=== PATIENT | female | born 1950 | race Hispanic/Latino ===

== ENCOUNTER 2019-02-20 01:24 | Emergency (ER) | payer OTHER ==
[~2019-02-20 01:24] MED LIST: AEC81 PO; INSU100C14 SQ; INSU100I13 SQ; METF-444 PO; SIMV20TA6 PO; VIT D2 PO
[2019-02-20] MEDS ORDERED: ONDANSETRON ODT 4 MG TAB ONE (03:31)
[2019-02-20] MEDS ORDERED: ACETAMINOPHEN-CODEINE 300/30MG TAB ONE (03:32)
[2019-02-20] MEDS ORDERED: MORPHINE SULFATE 4 MG/1ML SYG ONE (03:32)
== END 2019-02-20 04:19 | disposition home or self-care (01) ==
LOC: EDH 01:24
DX: S42.202A Unspecified fracture of upper end of left humerus, initial encounter for closed fracture (principal); S80.212A Abrasion, left knee, initial encounter; E11.9 Type 2 diabetes mellitus without complications; E78.00 Pure hypercholesterolemia, unspecified; I25.10 Atherosclerotic heart disease of native coronary artery without angina pectoris; Z95.1 Presence of aortocoronary bypass graft; Z90.49 Acquired absence of other specified parts of digestive tract; W18.39XA Other fall on same level, initial encounter; Y93.01 Activity, walking, marching and hiking; Y92.89 Other specified places as the place of occurrence of the external cause; Y99.8 Other external cause status
CPT/HCPCS: 73030; 96372; 99284; J2270

== ENCOUNTER 2019-09-20 08:14 | Inpatient (IN) | payer OTHER ==
[~2019-09-20] VITALS: Ht 157.5 cm; Wt 71.8 kg
[2019-09-20] VITALS (86 sets, daily range): BP systolic 47–157; BP diastolic 26–114
[~2019-09-20 08:14] MED LIST changes: +SIMV-43 PO; -SIMV20TA6 PO
[2019-09-20] MEDS ORDERED: PROPOFOL 1000 MG/100 ML 100 ML IV ONE (08:19)
[2019-09-20] MEDS ORDERED: MIDAZOLAM HCL 5 MG/ML 2ML VIAL IV ONE (08:20)
[2019-09-20 08:55] LABS: ABG BASE EXCESS -21.8 mmol/L (-2.0-3.0); ABG HCO3 7.1 mmol/L (21.0-28.0); ABG OXYGEN SATURATION 99.5 % (95.0-99.0); ABG PCO2 25 mmHg (32-45)
[2019-09-20 09:12] LABS: BASOPHILS % (AUTO) 0.3 % (0.0-5.0); HEMATOCRIT 37.8 % (36-48); LYMPHOCYTES % (AUTO) 3.7 % (21.0-51.0); MEAN CORPUSCULAR HEMOGLOBIN 29.3 pg (27.0-33.0); MEAN CORPUSCULAR HGB CONC 31.2 g/dL (32.0-36.0); MEAN CORPUSCULAR VOLUME 93.8 fL (79-99); MONOCYTES % (AUTO) 6.4 % (3.0-13.0); NEUTROPHILS % (AUTO) 82.4 % (40.0-77.0); PLATELET COUNT (AUTO) 407 K/uL (130-400); RED BLOOD CELL COUNT(AUTO) 4.03 MIL/uL (4.00-5.50); RED CELL DISTRIBUTION WIDTH 14.1 % (11.0-15.5); WHITE BLOOD COUNT (AUTO) 29.8 K/uL (4.8-10.8)
[2019-09-20] MEDS ORDERED: SODIUM CHLORIDE 0.9% 1000ML 3,000 ML IV ONE (09:13)
[2019-09-20] MEDS ORDERED: SODIUM CHLORIDE 0.9% 100 ML IV ONE (09:14)
[2019-09-20] MEDS ORDERED: INSULIN HUMULIN R 100 UNIT/ML 3ML ONE ×2 (09:16→09:18)
[2019-09-20] MEDS ORDERED: MEROPENEM 1 GM VIAL ONE (09:17)
[2019-09-20] MEDS ORDERED: NOREPINEPHRINE BITARTRATE 1 MG/1 ML ML IV ONE (09:18)
[2019-09-20] MEDS ORDERED: SODIUM CHLORIDE 0.9% 250 ML IV ONE (09:19)
[2019-09-20 09:25] LABS: INR 0.98 (0.85-1.15); PARTIAL THROMBOPLASTIN TIME 23.6 SEC (26.3-35.5); PROTHROMBIN TIME 10.6 SEC (9.6-11.6)
[2019-09-20 09:26] LABS: ALBUMIN 2.4 g/dL (3.5-5.0); BILIRUBIN,TOTAL 0.5 mg/dL (0.2-1.0); POTASSIUM 4.7 mmol/L (3.5-5.1); TOTAL PROTEIN, SERUM 5.7 g/dL (6.0-8.3)
[2019-09-20 10:55] LABS: BASOPHILS % (MANUAL) 1 % (0-2); LYMPHOCYTES % (MANUAL) 3 % (22-44); MAN.DIFF COMMENT-IMPRESSION MANUAL DIFFERENTIAL; MONOCYTES % (MANUAL) 3 % (2-9); SEGMENTED NEUTROPHILS % 93 % (40-70)
[2019-09-20 10:56] LABS: PLATELET MORPHOLOGY COMMENT SLIGHT INCREASED
[2019-09-20] MEDS ORDERED: METOCLOPRAMIDE 10 MG/2 ML VIAL IVP PRN (11:45)
[2019-09-20] MEDS ORDERED: MAGNESIUM 2GM PREMIX 50ML 50 ML IV PRN (11:45)
[2019-09-20] MEDS ORDERED: GLUCAGON 1MG KIT 1 MG ML IM PRN (11:45)
[2019-09-20] MEDS ORDERED: DEXTROSE 50%-WATER 50 ML DISP.SYRIN IV PRN (11:45)
[2019-09-20] MEDS ORDERED: HYDRALAZINE HCL 20 MG/ML VIAL IV PRN (11:45)
[2019-09-20] MEDS ORDERED: LACTULOSE 20 GM/30 ML UDCUP PO PRN (11:45)
[2019-09-20] MEDS ORDERED: ONDANSETRON HCL 4 MG/2 ML VIAL IVP PRN (11:45)
[2019-09-20] MEDS ORDERED: INSULIN REGULAR, HUMAN 3ML 100 UNIT in SODIUM CHLORIDE 0.9% 99 ML IV PRN ×2 (12:00)
[2019-09-20] MEDS ORDERED: VANCOMYCIN PROTOCOL PER PHARMACY IV SCH (13:30)
[2019-09-20] MEDS ORDERED: PHARMACY COMMUNICATION MISC SCH ×2 (13:30→15:15)
[2019-09-20] MEDS ORDERED: OSELTAMIVIR PHOSPHATE 75 MG CAP NG SCH (13:45)
[2019-09-20] MEDS: MIDAZOLAM 50MG-0.9% NS 50ML 50 ML IV SCH (14:38)
[2019-09-20] MEDS: MEROPENEM 1 GM VIAL IVP SCH ×2 (14:39→20:34)
[2019-09-20] MEDS: SODIUM CHLORIDE 0.9% 1000ML 1,000 ML IV SCH ×4 (14:45→20:10)
[2019-09-20 15:06] LABS: ABG BASE EXCESS -14.1 mmol/L (-2.0-3.0); ABG HCO3 10.9 mmol/L (21.0-28.0); ABG OXYGEN SATURATION 98.8 % (95.0-99.0); ABG PCO2 24 mmHg (32-45)
[2019-09-20] MEDS ORDERED: LIDOCAINE HCL-MPF 1% 2ML VIAL IV PRN (16:00)
--- NOTE | 2019-09-20 16:00 | NUR ---
PICC LINE ATTEMPT TO LEFT UPPER ARM, UNABLE TO INTRODUCE CATHETER TO 2 SITE , PROCEDURE ABORTED
[2019-09-20] MEDS: NOREPINEPHRINE 4MG/NS 250ML 250 ML IV SCH ×4 (16:20→23:06)
[2019-09-20] MEDS: POTASSIUM CHLORIDE 10MEQ/100ML 100 ML IV PRN (16:45)
[2019-09-20] MEDS ORDERED: LACTATED RINGERS 1000ML 2,000 ML IV ONE (16:49)
[2019-09-20] MEDS ORDERED: LACTATED RINGERS 1000ML IV SCH (17:00)
[2019-09-20] MEDS: SYRING IV SCH (17:32)
[2019-09-20] MEDS: SODIUM CHLORIDE 0.9% IV SCH (17:32)
[2019-09-20] MEDS: SODIUM BICARB 8.4% IV SCH (17:32)
[2019-09-20] MEDS: OSELTAMIVIR SUSP 15 MG/ML (6 CAPS/29ML) NG SCH ×2 (18:11)
[2019-09-20] MEDS ORDERED: COMPOUND PO MISCELLANEOUS 1 EACH MISC MISC PRN (18:15)
[2019-09-20] MEDS: FENTANYL 1000MCG+NS 100ML IV.SOLN IV SCH ×2 (20:33→22:45)
[2019-09-20] MEDS: VANCOMYCIN 1GM+NS 250ML 250 ML IV SCH (20:34)
[2019-09-20 21:19] LABS: MAGNESIUM 1.7 mg/dL (1.80-2.40); POTASSIUM 3.1 mmol/L (3.5-5.1)
[2019-09-20] MEDS ORDERED: MAGNESIUM 2GM PREMIX 50ML 50 ML IV SCH (22:15)
[2019-09-20] MEDS: CHLORHEXIDINE GLUCONATE 473 ML MOUTHWASH MM SCH (22:44)
[2019-09-21] VITALS (39 sets, daily range): BP systolic 81–186; BP diastolic 35–94
[2019-09-21] MEDS: MIDAZOLAM 50MG-0.9% NS 50ML 50 ML IV SCH (00:17)
[2019-09-21 00:42] LABS: APPEARANCE,URINE Cloudy (CLEAR); BILIRUBIN,URINE Negative (NEGATIVE); COLOR,URINE Yellow (YELLOW); GLUCOSE, URINE (UA) 250 mg/dL (NEGATIVE); KETONES,URINE Trace mg/dL (NEGATIVE); LEUKOCYTE ESTERASE ,URINE Small (NEGATIVE); NITRATE,URINE Negative (NEGATIVE); OCCULT BLOOD,URINE Large (NEGATIVE); PROTEIN,URINE POS 1+ mg/dL (NEGATIVE); UROBILINOGEN,URINE 0.2 mg/dL (0.2-1.0)
[2019-09-21 01:19] LABS: BACTERIA,URINE Few /HPF (None Seen); SQUAMOUS EPITHELIAL CELL,UR Few /HPF (0-2); YEAST,URINE BUDDING Few /HPF (None Seen)
[2019-09-21] MEDS: SODIUM CHLORIDE 0.9% 1000ML 1,000 ML IV SCH ×4 (02:50→21:21)
[2019-09-21] MEDS: SYRING IV SCH ×3 (04:00→16:00)
[2019-09-21] MEDS: SODIUM BICARB 8.4% IV SCH ×3 (04:00→16:00)
[2019-09-21] MEDS: SODIUM CHLORIDE 0.9% IV SCH ×3 (04:00→16:00)
[2019-09-21 05:24] LABS: ABG BASE EXCESS -9.4 mmol/L (-2.0-3.0); ABG HCO3 12.6 mmol/L (21.0-28.0); ABG OXYGEN SATURATION 98.9 % (95.0-99.0); ABG PCO2 20 mmHg (32-45)
[2019-09-21] MEDS: MEROPENEM 1 GM VIAL IVP SCH ×3 (06:18→20:23)
[2019-09-21 06:57] LABS: HEMATOCRIT 33.7 % (36-48); MEAN CORPUSCULAR HEMOGLOBIN 30.2 pg (27.0-33.0); MEAN CORPUSCULAR HGB CONC 36.2 g/dL (32.0-36.0); MEAN CORPUSCULAR VOLUME 83.4 fL (79-99); NUCLEATED RED BLOOD CELLS 0.1 % (0.0-0.19); PLATELET COUNT (AUTO) 239 K/uL (130-400); RED BLOOD CELL COUNT(AUTO) 4.04 MIL/uL (4.00-5.50); RED CELL DISTRIBUTION WIDTH 13.2 % (11.0-15.5); WHITE BLOOD COUNT (AUTO) 26.2 K/uL (4.8-10.8)
[2019-09-21 07:17] LABS: BILIRUBIN,TOTAL 0.4 mg/dL (0.2-1.0); CREATININE 1.8 mg/dL (0.5-1.5); MAGNESIUM 1.9 mg/dL (1.80-2.40); TOTAL PROTEIN, SERUM 4.9 g/dL (6.0-8.3); URIC ACID 8.9 mg/dL (2.6-7.2)
[2019-09-21 07:52] LABS: B-TYPE NATRIURETIC PEPTIDE 1410 pg/mL (0-100)
[2019-09-21] MEDS ORDERED: ENOXAPARIN SODIUM 40 MG/0.4 ML SYRINGE SQ SCH (09:00)
[2019-09-21] MEDS: AZITHROMYCIN 500MG+NS 250ML 250 ML IV SCH (09:05)
[2019-09-21] MEDS: THIAMINE HCL 100 MG/ML 2ML VIAL IVP SCH (09:05)
[2019-09-21] MEDS: PANTOPRAZOLE 40 MG/VIAL IVP SCH (09:05)
[2019-09-21] MEDS: OSELTAMIVIR SUSP 15 MG/ML (6 CAPS/29ML) NG SCH ×2 (09:06)
[2019-09-21] MEDS: NOREPINEPHRINE 4MG/NS 250ML 250 ML IV SCH (09:41)
[2019-09-21] MEDS: CHLORHEXIDINE GLUCONATE 473 ML MOUTHWASH MM SCH ×2 (10:55→20:23)
[2019-09-21] MEDS ORDERED: POTASSIUM PHOS 15 mMOL+NS250ML 250 ML IV PRN (11:15)
[2019-09-21] MEDS: POTASSIUM CHLORIDE 10MEQ/100ML 100 ML IV PRN ×3 (12:43→21:45)
[2019-09-21] MEDS ORDERED: PHARMACY COMMUNICATION MISC SCH (13:15)
--- NOTE | 2019-09-21 13:20 | NUR ---
INITIAL SW spoke to patient's spouse, Gian Ha, . Patient lives with spouse. No home services. DME: walker with seat, wheelchair, glucometer (uses insulin). Patient needs help with ADL's and does not drive. Spouse assists with ADL's and with transportation. PCP is Dr. Baldev Livingston. Pharmacy is [facility] DCP is undetermined. Family will wait for MD recommendation. DCP is home. Addendum: 09/21/19 at 1325 by OTTO CHANG SS Amended: Links added.
--- NOTE | 2019-09-21 15:13 | NUR ---
RD NOTIFICATION - TUBE FEEDING Pt admitted with Respiratory failure. COVID testing. Increased Protein needs. Tube feeding recommendation: Initiate Vital 1.2 @25mls/hr for first 5hrs. Increase by 5 mls every 5 hours as tolerated. Goal: @45mls/hr (1296kcal/81gm protein). Tube feeding order Left with RN on POD A to be delivered to Quarantine unit (Date: 09/21/19, Time: 1330). Labeled with Pt Identifiers. Please notify RD as nutritional concerns arise. Thank you. Addendum: 09/21/19 at [address] Amended: Links added.
[2019-09-21 17:37] LABS: ABG BASE EXCESS -2.1 mmol/L (-2.0-3.0); ABG OXYGEN SATURATION 99.3 % (95.0-99.0); ABG PCO2 16 mmHg (32-45)
--- NOTE | 2019-09-21 18:43 | NUR ---
HARRIET Souza made aware of most recent abg. Stated to decrease rate to 20 from 26
[2019-09-21] MEDS: NOREPINEPHRINE BITARTRATE 8 MG/NS 250ML IV SCH ×2 (19:26)
[2019-09-21] MEDS: VASOPRESSIN 20 UNITS in SODIUM CHLORIDE 0.9% 100 ML IV SCH (19:26)
[2019-09-21 19:33] LABS: CREATININE 1.4 mg/dL (0.5-1.5)
[2019-09-21 19:35] LABS: POTASSIUM 2.6 mmol/L (3.5-5.1)
[2019-09-22] VITALS (39 sets, daily range): BP systolic 75–118; BP diastolic 39–78
[2019-09-22 00:03] LABS: ABG BASE EXCESS 1.6 mmol/L (-2.0-3.0); ABG HCO3 20.4 mmol/L (21.0-28.0); ABG OXYGEN SATURATION 99.4 % (95.0-99.0); ABG PCO2 20 mmHg (32-45)
[2019-09-22 00:48] LABS: CREATININE 1.3 mg/dL (0.5-1.5)
[2019-09-22 00:52] LABS: POTASSIUM 2.9 mmol/L (3.5-5.1)
[2019-09-22] MEDS: POTASSIUM CHLORIDE 10MEQ/100ML 100 ML IV PRN ×2 (00:56→08:14)
[2019-09-22] MEDS: SODIUM BICARB 8.4% IV SCH (01:29)
[2019-09-22] MEDS: SYRING IV SCH (01:29)
[2019-09-22] MEDS: SODIUM CHLORIDE 0.9% IV SCH (01:29)
[2019-09-22] MEDS: NOREPINEPHRINE 4MG/NS 250ML 250 ML IV SCH (05:05)
[2019-09-22] MEDS: VASOPRESSIN 20 UNITS in SODIUM CHLORIDE 0.9% 100 ML IV SCH (05:07)
[2019-09-22] MEDS: MEROPENEM 1 GM VIAL IVP SCH ×3 (06:07→22:34)
[2019-09-22 07:19] LABS: HEMOGLOBIN A1C 11.5 % (4.0-6.0)
[2019-09-22 07:24] LABS: CREATININE 1.2 mg/dL (0.5-1.5)
[2019-09-22 07:26] LABS: MAGNESIUM 1.9 mg/dL (1.80-2.40); PHOSPHORUS 0.7 mg/dL (2.5-4.9); POTASSIUM 2.7 mmol/L (3.5-5.1)
[2019-09-22 08:05] LABS: HEMATOCRIT 28.1 % (36-48); MEAN CORPUSCULAR HEMOGLOBIN 29.9 pg (27.0-33.0); MEAN CORPUSCULAR VOLUME 80.7 fL (79-99); PLATELET COUNT (AUTO) 161 K/uL (130-400); RED BLOOD CELL COUNT(AUTO) 3.48 MIL/uL (4.00-5.50); RED CELL DISTRIBUTION WIDTH 13.3 % (11.0-15.5)
[2019-09-22 08:07] LABS: WHITE BLOOD COUNT (AUTO) 30.2 K/uL (4.8-10.8)
[2019-09-22] MEDS: CHLORHEXIDINE GLUCONATE 473 ML MOUTHWASH MM SCH ×2 (08:11→21:00)
[2019-09-22] MEDS: OSELTAMIVIR SUSP 15 MG/ML (6 CAPS/29ML) NG SCH ×2 (08:11)
[2019-09-22] MEDS: NOREPINEPHRINE BITARTRATE 8 MG/NS 250ML IV SCH ×2 (08:11)
[2019-09-22] MEDS: AZITHROMYCIN 500MG+NS 250ML 250 ML IV SCH (08:11)
[2019-09-22] MEDS: ENOXAPARIN SODIUM 30 MG/0.3 ML SQ SCH (08:12)
[2019-09-22] MEDS: PANTOPRAZOLE 40 MG/VIAL IVP SCH (08:12)
[2019-09-22] MEDS: THIAMINE HCL 100 MG/ML 2ML VIAL IVP SCH (08:12)
[2019-09-22 08:18] LABS: ABG BASE EXCESS 2.3 mmol/L (-2.0-3.0); ABG HCO3 22.9 mmol/L (21.0-28.0); ABG PCO2 26 mmHg (32-45)
[2019-09-22 08:42] LABS: BAND NEUTROPHILS % (MANUAL) 18 % (0-2); LYMPHOCYTES % (MANUAL) 5 % (22-44); MONOCYTES % (MANUAL) 6 % (2-9); SEGMENTED NEUTROPHILS % 71 % (40-70)
[2019-09-22 08:43] LABS: MAN.DIFF COMMENT-IMPRESSION MANUAL DIFFERENTIAL; PLATELET MORPHOLOGY COMMENT ADEQUATE
[2019-09-22] MEDS: SODIUM CHLORIDE 0.9% 1000ML 1,000 ML IV SCH (09:43)
[2019-09-22] MEDS ORDERED: CALCIUM GLUCONATE 1 GM in SODIUM CHLORIDE 0.9% 100 ML IV SCH (09:45)
[2019-09-22] MEDS ORDERED: LIDOCAINE HCL-MPF 1% 2ML VIAL IV PRN (09:45)
[2019-09-22] MEDS ORDERED: PHARMACY COMMUNICATION MISC SCH (09:45)
[2019-09-22] MEDS ORDERED: POTASSIUM PHOS 15 mMOL+NS250ML 250 ML IV PRN (09:45)
[2019-09-22] MEDS ORDERED: POTASSIUM PHOSPHATE 30 MMOL in SODIUM CHLORIDE 0.9% 250 ML IV SCH (10:00)
[2019-09-22] MEDS: POTASSIUM CHLORIDE 20MEQ/100ML 100 ML IV PRN ×2 (10:28→12:12)
[2019-09-22 10:53] LABS: POTASSIUM 3.7 mmol/L (3.5-5.1)
--- NOTE | 2019-09-22 11:44 | NUR ---
Electrolyte orders, and Vent changes. Spoke c/ Nicole from [facility] in regards to hypokalemia, hypocalcemia, and hypophosphatemia. As well as, most recent ABG results. Orders given: potassium 20MeQ IV protocol, give 2gms of calcium as per protocol, and replace phosphorus. ALso, Decrease rate to 14 and recheck abg at 1300
[2019-09-22 13:48] LABS: ABG BASE EXCESS -8.4 mmol/L (-2.0-3.0); ABG HCO3 15.1 mmol/L (21.0-28.0); ABG PCO2 27 mmHg (32-45)
[2019-09-22] MEDS ORDERED: LACTATED RINGERS 1000ML 1,000 ML IV ONE (14:45)
[2019-09-22] MEDS ORDERED: SODIUM BICARB 50MEQ 50ML VIAL IV ONE (14:45)
[2019-09-22] MEDS: NOREPINEPHRINE BITARTRATE 16 MG in SODIUM CHLORIDE 0.9% 250 ML IV SCH (15:30)
[2019-09-22] MEDS: LACTATED RINGERS 1000ML 1,000 ML IV SCH (15:31)
[2019-09-22 16:43] LABS: CREATININE 1.1 mg/dL (0.5-1.5); POTASSIUM 4.2 mmol/L (3.5-5.1)
[2019-09-22] MEDS: INSULIN HUMULIN R 100 UNIT/ML 3ML SQ SCH (18:00)
[2019-09-22] MEDS: VANCOMYCIN 1GM+NS 250ML 250 ML IV SCH (19:31)
[2019-09-22 23:09] LABS: POTASSIUM 4.8 mmol/L (3.5-5.1)
[2019-09-23] VITALS (27 sets, daily range): BP systolic 89–119; BP diastolic 45–88
[2019-09-23] MEDS: LACTATED RINGERS 1000ML 1,000 ML IV SCH ×3 (00:39→20:39)
[2019-09-23] MEDS: INSULIN HUMULIN R 100 UNIT/ML 3ML SQ SCH ×4 (00:51→18:00)
[2019-09-23] MEDS: MEROPENEM 1 GM VIAL IVP SCH ×3 (05:48→21:04)
[2019-09-23 05:59] LABS: ALBUMIN 1.7 g/dL (3.5-5.0); BILIRUBIN,TOTAL 0.5 mg/dL (0.2-1.0); MAGNESIUM 1.8 mg/dL (1.80-2.40); PHOSPHORUS 2.2 mg/dL (2.5-4.9); POTASSIUM 4.6 mmol/L (3.5-5.1); TOTAL PROTEIN, SERUM 4.6 g/dL (6.0-8.3)
[2019-09-23] MEDS: AZITHROMYCIN 500MG+NS 250ML 250 ML IV SCH (06:49)
[2019-09-23 08:04] LABS: HEMATOCRIT 30.8 % (36-48); MEAN CORPUSCULAR HGB CONC 34.4 g/dL (32.0-36.0); MEAN CORPUSCULAR VOLUME 87.3 fL (79-99); NUCLEATED RED BLOOD CELLS 0.1 % (0.0-0.19); PLATELET COUNT (AUTO) 149 K/uL (130-400); RED BLOOD CELL COUNT(AUTO) 3.53 MIL/uL (4.00-5.50); RED CELL DISTRIBUTION WIDTH 14.8 % (11.0-15.5)
[2019-09-23 08:16] LABS: WHITE BLOOD COUNT (AUTO) 34.4 K/uL (4.8-10.8)
[2019-09-23 08:39] LABS: BAND NEUTROPHILS % (MANUAL) 1 % (0-2); LYMPHOCYTES % (MANUAL) 6 % (22-44); MONOCYTES % (MANUAL) 2 % (2-9); SEGMENTED NEUTROPHILS % 91 % (40-70)
[2019-09-23 08:40] LABS: PLATELET MORPHOLOGY COMMENT ADEQUATE
[2019-09-23] MEDS: PANTOPRAZOLE 40 MG/VIAL IVP SCH (10:10)
[2019-09-23] MEDS: ENOXAPARIN SODIUM 30 MG/0.3 ML SQ SCH (10:13)
[2019-09-23] MEDS: ACETAMINOPHEN 325 MG TAB NG PRN ×2 (10:14→19:25)
[2019-09-23] MEDS: THIAMINE HCL 100 MG/ML 2ML VIAL IVP SCH (10:15)
[2019-09-23] MEDS: CHLORHEXIDINE GLUCONATE 473 ML MOUTHWASH MM SCH ×2 (10:50→21:38)
[2019-09-23] MEDS ORDERED: INSULIN GLARGINE 100 UNITS/ML 10 ML VIAL SQ SCH (11:30)
[2019-09-23] MEDS: OSELTAMIVIR SUSP 15 MG/ML (6 CAPS/29ML) NG SCH ×2 (11:44)
--- NOTE | 2019-09-23 12:30 | NUR ---
DR WORLEY SPOKE TO CHELO MEANS AND HIS SON FROM [facility] REGARDING LIFE EXPECTANCY DUE TO HER EF OF 10%
[2019-09-23] MEDS: FLUCONAZOLE 400 MG/NS 200 ML 200 ML IV SCH (13:50)
[2019-09-23] MEDS: NOREPINEPHRINE BITARTRATE 16 MG in SODIUM CHLORIDE 0.9% 250 ML IV SCH (13:58)
[2019-09-23] MEDS ORDERED: DOBUTAMINE 250MG/D5 250ML 250 ML IV SCH (15:15)
[2019-09-23] MEDS: FUROSEMIDE 10 MG/ML 2ML VIAL IV SCH (21:04)
[2019-09-23] MEDS: ASPIRIN 81MG TAB.CHEW PO SCH (21:09)
[2019-09-24] VITALS (30 sets, daily range): BP systolic 83–136; BP diastolic 36–113
[2019-09-24] MEDS: NOREPINEPHRINE BITARTRATE 16 MG in SODIUM CHLORIDE 0.9% 250 ML IV SCH (01:58)
[2019-09-24] MEDS: ACETAMINOPHEN 325 MG TAB NG PRN ×2 (03:13→08:48)
[2019-09-24] MEDS: MEROPENEM 1 GM VIAL IVP SCH (05:57)
[2019-09-24] MEDS: FUROSEMIDE 10 MG/ML 2ML VIAL IV SCH (05:58)
[2019-09-24] MEDS: INSULIN HUMULIN R 100 UNIT/ML 3ML SQ SCH ×5 (06:00→12:00)
[2019-09-24 06:25] LABS: MEAN CORPUSCULAR HGB CONC 33.7 g/dL (32.0-36.0); MEAN CORPUSCULAR VOLUME 86.2 fL (79-99); NUCLEATED RED BLOOD CELLS 0.3 % (0.0-0.19); PLATELET COUNT (AUTO) 92 K/uL (130-400); RED BLOOD CELL COUNT(AUTO) 3.48 MIL/uL (4.00-5.50); RED CELL DISTRIBUTION WIDTH 14.4 % (11.0-15.5); WHITE BLOOD COUNT (AUTO) 19.6 K/uL (4.8-10.8)
[2019-09-24 06:34] LABS: CREATININE 0.9 mg/dL (0.5-1.5); POTASSIUM 3.5 mmol/L (3.5-5.1)
[2019-09-24] MEDS: LACTATED RINGERS 1000ML 1,000 ML IV SCH (06:39)
[2019-09-24 07:00] LABS: B-TYPE NATRIURETIC PEPTIDE 4370 pg/mL (0-100)
[2019-09-24 07:48] LABS: ABG BASE EXCESS 5.1 mmol/L (-2.0-3.0); ABG HCO3 26.3 mmol/L (21.0-28.0); ABG OXYGEN SATURATION 99.2 % (95.0-99.0); ABG PCO2 29 mmHg (32-45)
[2019-09-24] MEDS: AZITHROMYCIN 500MG+NS 250ML 250 ML IV SCH (08:13)
[2019-09-24] MEDS: FLUCONAZOLE 400 MG/NS 200 ML 200 ML IV SCH (08:46)
[2019-09-24] MEDS: ENOXAPARIN SODIUM 30 MG/0.3 ML SQ SCH (08:47)
[2019-09-24] MEDS: ASPIRIN 81MG TAB.CHEW PO SCH (08:47)
[2019-09-24] MEDS: THIAMINE HCL 100 MG/ML 2ML VIAL IVP SCH (08:49)
[2019-09-24] MEDS: CHLORHEXIDINE GLUCONATE 473 ML MOUTHWASH MM SCH (08:50)
[2019-09-24] MEDS: OSELTAMIVIR SUSP 15 MG/ML (6 CAPS/29ML) NG SCH ×2 (08:53)
[2019-09-24] MEDS ORDERED: INSULIN GLARGINE 100 UNITS/ML 10 ML VIAL SQ SCH ×3 (09:00→13:25)
[2019-09-24] MEDS: PANTOPRAZOLE 40 MG/VIAL IVP SCH (10:14)
--- NOTE | 2019-09-24 10:52 | NUR ---
DNR SIGNED, MD NOTIFIED CHELO IN TO SEE PATIENT, SIGNED DNR AND SAYS FAMILY WISHES TO REMOVE LIFE SUPPORT. MD NOTIFIED. WILL COME SEE PATIENT
--- NOTE | 2019-09-24 13:11 | NUR ---
ADVISED BY NEDA THAT FAMILY HAS OPTED FOR WITHDRAWAL. WAS TOLD [facility] CONSULT WILL BE ORDERED. WILL WAIT TO ASSESS ABILIYT TO TRANSFER OUT TO HOSPICE WILL SEND EMAIL TO AND 2ND FLOOR YOSI FOR FOLLOW UP IN AM Addendum: 09/24/19 at 1313 by ELENA RAMOS RN CM Amended: Links added.
--- NOTE | 2019-09-24 16:58 | NUR ---
3 SONS AND ALLOWED TO VISIT PATIENT. READY TO SIGN WITHDRAWAL OF LIFE SUPPORT
--- NOTE | 2019-09-24 17:10 | NUR ---
SIGNED WITHDRAWAL OF LIFE SUPPORT. RECEIVED ORDER FROM DR WORLEY
[2019-09-24] MEDS ORDERED: LORAZEPAM 2 MG/ML 1 ML VIAL IVP PRN (17:15)
--- NOTE | 2019-09-24 17:42 | NUR ---
1730 PT EXTUBATED BY RESPIRATORY DEPT AND PLACED ON VENTI MASK. DRIPS AND FEEDING DISCONTINUED. ALLOWED TO BE AT BEDSIDE AFTER EXTUBATION
--- NOTE | 2019-09-24 18:40 | NUR ---
PT ON VENTI MASK, ABLE TO WHISPER A FEW WORDS, PLEASANTLY DISORIENTED. 3 SONS AND AT BEDSIDE
--- NOTE | 2019-09-24 20:00 | NUR ---
Withdrawal of life support earlier. Sleeping. Awakens briefly when called. Voice whispery. Denies pain, sob. 2 sons and at bedside. Comfort measures done. Encouraged to call prn. Call light and needed items readily at hand.
--- NOTE | 2019-09-25 08:14 | NUR ---
PT IS COMFORTABLE AND ABLE TO EXPRESS HERSELF VERBALLY. AND SONS AT BEDSIDE. PLAN OF CARE AND COMFORT MEASURES EXPLAINED. I TRIED TO TURN HER AND SHE TOLD ME "LEAVE ME ALONE"
--- NOTE | 2019-09-25 10:08 | NUR ---
[facility] Sw met with and 3 sons. Family in agreement to make pt comfort measures and hospice when arrangements made. Family state p alisa need placement because can not meet level of care at home. SW educated on hospice homes and that only home accepting patients at this time is [facility] in [place]. Sw discussed hospice agencies, and they are agreeable to [facility] as recommended by DR Shepard. Family voiced understanding and are agreeable to referral. signed consent and OOHDNR. Sw called [facility] office [phone] and informed of referral and bed availability at [facility]. Referral faxed to [phone]. SW spoke to Darcy and fax was recd. Waiting for Misty to respond.
--- NOTE | 2019-09-25 12:50 | NUR ---
[facility] SW escorted and son phillip to ER to meet with Misty [phone] from [facility] to sign consent forms. Misty informed me that [facility] will not have a bed until tomorrow. Misty to get Corvid 19 assessment and OOHDNR signed by Dr Shepard. DCP pending bed and delivery of DME. Pt is comfort measures at this time.
--- NOTE | 2019-09-25 12:51 | NUR ---
PENDING APPROVAL FOR HOSPICE/[facility]
[2019-09-25] MEDS: MORPHINE SULFATE 2 MG/ML 1ML SYG IVP PRN (13:59)
--- NOTE | 2019-09-25 14:45 | NUR ---
[facility] ACCEPTED Sw called Misty [phone] and discussed dcp. signed consents, Dr Shepard signed OOHDNR and CORVID 19 form. Misty to send pt information to [facility] for review. Misty hoping DME can be delivered today so we can be ready for dc tomorrow. Marilyn to follow up in am.
--- NOTE | 2019-09-25 15:00 | NUR ---
PT FOUND TO HAVE HEAD LICE- CONTACT PRECAUTIONS INITIATED.. DR LOVETT NOTIFIED-ORDERS FOR LICE TREATMENT GIVEN. I ALSO NOTIFIED THE INFECTION CONTROL NURSE ,ADRIANA ASIF AND MY DEPT CASE OPERATOR. ALSO FOUND A DEEP TISSUE INJURY TO LEFT BUTTOCK AND TOOK A PICTURE/PLACED ALEVYN FOAM DRESSING. PT HAD LARGE LOOSE BM. CHRIS CARE GIVEN.
--- NOTE | 2019-09-25 15:45 | NUR ---
PT TRANSFERRED TO ROOM 3187. HAND OFF REPORT GIVEN TO AAKASH RED
[2019-09-25] MEDS ORDERED: PERMETHRIN LOTION 1% 59ML BOTTLE TP SCH (16:15)
--- NOTE | 2019-09-25 16:30 | NUR ---
PT TRANSFER TO ROOM 318 . FROM 2ND FLOOR , FAMILY AT THE BEDSIDE, REVIEW PLAN OF CARE FOR PT . COMFORT SUPPORT, PT IS ABLE TO FOCUS WITH VERBAL COMMAND,S HOB UP . BED LEVEL DOWN ,PT HEAD IS COVER ,
[2019-09-25 20:00] VITALS: BP 81/75
[2019-09-26] VITALS: BP 84/52
--- NOTE | 2019-09-26 01:15 | NUR ---
PATIENT AND AT BEDSIDE WERE EXPLAINED OF PATIENT'S LICE INFESTATION. HE WAS MADE AWARE PATIENT HAS VERY LONG HAIR AND HAS MATTED HAIR ESPECIALLY IN THE BACK. BOTH AND PATIENT HE GAVE VERBAL CONSENT TO CUT PATIENT'S HAIR. WE THEN PROCEEDED WITH LICE TREATMENT.
[2019-09-26 04:00] VITALS: BP 84/51
[2019-09-26 07:30] VITALS: BP 75/43
[2019-09-26] MEDS: ACETAMINOPHEN 325 MG TAB NG PRN ×3 (08:33→18:43)
--- NOTE | 2019-09-26 10:53 | NUR ---
[facility] F/U Hussain called Misty at [facility] for status on DME and DC. Per Misty, she was calling [facility] for bed availability. Informed Misty that no one was accepting pts except [facility] and this was told to her and her office yesterday. Family was also aware that [facility] was their only options. Per Misty, DME nor paperwork was sent to [facility]. Misty to work on this today. uHssain called [facility] and spoke to Luis Felipe. Per Luis Felipe, he just recd paperwork for pt and needs to review it. Luis Felipe informed me of visitation times at facility and that can stay the night with pt, but can not leave her room. Luis Felipe states that they are now required to do more to get room ready for new pt than before and it is taking 24 to 48hrs to complete. Once room is ready, paperwk reviewed, family toured, pt can transfer. HUSSAIN spoke to keven Gastelum at [phone]. Per son, Misty never f/u with family yesterday as she had said she would. Son stated that they were pending call from [facility] for update. HUSSAIN explained to son that [place] was their only option for placement, the visitation at [facility] and admission process for [facility]. Son given [facility] Information to contact Luis Felipe himself. Hussain reviewed pt's notes and read that pt was treated for head lice this am. Hussain contacted CM and discussed. Per CM, [facility] and [facility] must be made aware. HUSSAIN called Darcy nurse at [facility] and informed of lice. Darcy to contact [facility] and see if this will change possible admission/acceptance. Waiting for call back.
--- NOTE | 2019-09-26 11:48 | NUR ---
LICE f/u HUSSAIN recd call from Darcy at [facility]. [facility] said pt must be clear of lice for them arabella accept. CM made aware. CM to inform Geoff nurse.
--- NOTE | 2019-09-26 11:52 | NUR ---
RD FOLLOW UP NOTE PT WITH COMFORT MEASURES IN PLACE. DIET ORDER ADVANCED TO REGULAR. RECOMMEND ENSURE NUTRITIONAL SUPPLEMENTATION NEEDED. RD TO CONTINUE TO MONITOR. PLEASE NOTIFY NUTRITIONAL CONCERNS ARISE. Addendum: 09/26/19 at [address] Amended: Links added.
--- NOTE | 2019-09-26 13:58 | NUR ---
STOP COMFORT MEASURES AND HOSPICE REFERRAL HUSSAIN hidalgo call from son Nirav. Son states that he and pt have been talking and they would like a 2nd opinion from Lap Cutter Truer Operator on pt. Son (who is a nurse), states that pt is improving and feels that if pt could get Lasix to help with her swelling/fluid retention, pt maybe able to make more improvement and go home. "My mom really wants to go home". Son asked who was Lap Cutter Truer Operator pt was seen by and I informed Dr Del Rosario. Son states since pt is on comfort measures, her vitals are not being checked and he feels they need to be checked. Son and family want comfort measures stopped and pt resume treatment. Referred son to speak to pt's nurse Geoff, who can inform pt's attending of this and MD can discuss with pt and family. CM made aware of above.
[2019-09-27] MEDS: ACETAMINOPHEN 325 MG TAB NG PRN (03:18)
[2019-09-27 05:30] VITALS: BP 101/50
[2019-09-27 08:16] VITALS: BP 116/77
--- NOTE | 2019-09-27 08:48 | NUR ---
RESUME HOSPICE REFERRAL Marilyn recd text from Nirav pt's son. They have spoken to Dr Rubi and have decided to go with hospice. Marilyn contacted Misty at [facility] who has been in touch with son and is aware of this. Misty informed that pt is now cleared for lice and can be transferred. Misty to work on arrangements with [facility] for family tour and DME delivery. Misty given contact # for nurse Plan is to dc today. CM aware of this
[2019-09-27 11:00] VITALS: BP 145/53
--- NOTE | 2019-09-27 11:39 | NUR ---
LETTER OF CLEARANCE HUSSAIN recd call From Misty at [facility]. [facility] wants letter verifying pt has been cleared for lice faxed to them before they will allow family to tour. HUSSAIN notified CM, and was referred to Renee or Winifred Avalos in [place]. Hussain met with Renee and explained need for letter. CMD made aware CMD notified Kip, hardwood floor sander for assistance. HUSSAIN spoke to CM. Nurse was asked to assess pt by HOMER Durham. Lice still found in pt's hair. Nurse to contact pharmacy regarding treatment. Pt is not cleared at this time. HUSSAIN notified Misty at [facility] and Family.
[2019-09-27] MEDS ORDERED: PERMETHRIN LOTION 1% 59ML BOTTLE TP SCH (11:45)
[2019-09-27 15:43] VITALS: BP 119/50
[2019-09-27] MEDS: FUROSEMIDE 20 MG TABLET PO SCH (17:54)
[2019-09-27 19:42] VITALS: BP 120/50
[2019-09-27 23:26] VITALS: BP 117/50
[2019-09-28 03:42] VITALS: BP 112/49
[2019-09-28 08:14] VITALS: BP 115/45
[2019-09-28] MEDS: FUROSEMIDE 20 MG TABLET PO SCH ×2 (11:04→18:29)
--- NOTE | 2019-09-28 11:40 | NUR ---
Letter Faxed to [facility] and [facility]. waiting on family to be allowed to tour.
[2019-09-28 12:04] VITALS: BP 110/47
--- NOTE | 2019-09-28 13:20 | NUR ---
HUSSAIN contacted Misty at [facility] for status. Now [facility] wants to talk to Judy Avalos to confirm clearance.Luis Felipe tried reaching Judy, left message. Email sent to Judy notifying her of this by CM
--- NOTE | 2019-09-28 13:55 | NUR ---
Recd email from Judy, she has spoken to Luis Felipe. Cut off time is 4, if pt can not be there by then, she will have to wait till Wednesday. Marilyn called Misty to inform of this, left message. Waiting on response
--- NOTE | 2019-09-28 14:15 | NUR ---
DCP: HOME WITH [facility] MARILYN recd call from Misty. Luis Felipe will not accept pt till Wednesday related to Lice issue. Marilyn left message for Luis Felipe to verify this. Marilyn recd another call from Misty. She spoke to pt's . states he wants to take pt home and wait for bed at [facility] from home. complaining about restrictions on visitors due to santos virus while is here and prefers to be at home. Misty to order DME dc today. CM aware
--- NOTE | 2019-09-28 14:29 | NUR ---
DCP CHANGED!!! Marilyn hidalgo call from son Zane. Son upset with plan to go home, states pt will get reinfected with lice and can not take care of pt. Son told this is not a good plan, pt needs to stay and wait till bed available Wednesday. Cm made aware Marilyn hidalgo call from Misty. has changed his mind, sons not in agreement to take pt home, so he will just stay here till Wednesday.
[2019-09-28 16:02] VITALS: BP 112/49
[2019-09-28 19:10] VITALS: BP 112/46
[2019-09-28 23:40] VITALS: BP 121/47
[2019-09-29] MEDS: ACETAMINOPHEN 325 MG TAB NG PRN (01:32)
[2019-09-29 03:28] VITALS: BP 114/40
[2019-09-29] MEDS: MORPHINE SULFATE 2 MG/ML 1ML SYG IVP PRN (04:24)
[2019-09-29 08:49] VITALS: BP 99/43
[2019-09-29] MEDS: FUROSEMIDE 20 MG TABLET PO SCH ×2 (10:18→17:00)
[2019-09-29 11:30] VITALS: BP 117/43
[2019-09-29 16:22] VITALS: BP 126/50
[2019-09-29 19:00] VITALS: BP 94/42
[2019-09-30 04:00] VITALS: BP 113/47
[2019-09-30 08:00] VITALS: BP 118/53
[2019-09-30] MEDS: FUROSEMIDE 20 MG TABLET PO SCH ×2 (09:58→17:14)
[2019-09-30 11:51] VITALS: BP 125/60
[2019-09-30 16:00] VITALS: BP 158/62
[2019-09-30] MEDS: MORPHINE SULFATE 2 MG/ML 1ML SYG IVP PRN (17:14)
[2019-09-30 20:03] VITALS: BP 107/52
[2019-10-01 00:38] VITALS: BP 109/61
[2019-10-01] MEDS: MORPHINE SULFATE 2 MG/ML 1ML SYG IVP PRN (03:44)
[2019-10-01 04:12] VITALS: BP 112/62
[2019-10-01 08:00] VITALS: BP 115/55
--- NOTE | 2019-10-01 08:00 | NUR ---
AWAKE AND ALERT AT THIS TIME, SON IN ROOM AND ATTEMPTING TO ASST. PT. WITH BKFT.NO NEEDS IDENTIFIED AT THIS TIME.
[2019-10-01] MEDS: FUROSEMIDE 20 MG TABLET PO SCH ×2 (08:57→17:02)
--- NOTE | 2019-10-01 11:15 | NUR ---
DR. GRIMES VISITED WITH PT. NO NEW ORDERS, ASKED IF HE WANTS LABS IN AM AND NO. STATES COMFORT MEASURES ONLY.
[2019-10-01 12:00] VITALS: BP 117/51
[2019-10-01 16:00] VITALS: BP 124/60
[2019-10-01 19:30] VITALS: BP 120/50
--- NOTE | 2019-10-01 21:00 | NUR ---
PT CARE PT'S DOES NOT WANT PT TO BE CHANGED BY STAFF. SAYS THAT HE WILL PROVIDE CHRIS CARE FOR HIS . HE WANTS HER TO REST AND MOVING THE PATIENT CAUSES "TOO MUCH PAIN" FOR THE PT. PROVIDED EDUCATION ON REPOSITIONING PT TO THE AND THE PT. THE PT AGREED SHE WANTED TO BE MOVED UP IN BED, BUT THAT WAS IT. PT WAS REPOSITIONED BY THE PCP EULALIA AND MYSELF. NO C/O PAIN OR DISCOMFORT REPORTED FROM THE PT. PT STANDING AT BEDSIDE.
--- NOTE | 2019-10-02 | NUR ---
VITALS PT AND PT'S REFUSING 0000 AND NEXT VITALS AT 0400. PT SAYS THAT HE HAS REPORTEDLY TOLD STAFF THAT SHE IS ON COMFORT MEASURES.
[2019-10-02 08:36] VITALS: BP 121/59
--- NOTE | 2019-10-02 09:23 | NUR ---
HOSPICE & [facility] FOLLOW UP SW spoke to Jackie Reis with [facility] this morning. Misty informed SW that DME has been ordered. Patient's spouse still has to go to [facility] to sign paperwork. [facility] until the issue with the lice with patient was cleared. Misty will follow up with [facility] and patient's spouse and let HUSSAIN know once DME has been delivered. Patient's nurse, Natalie and CM, Christine Kendall made aware.
[2019-10-02] MEDS: FUROSEMIDE 20 MG TABLET PO SCH (10:24)
--- NOTE | 2019-10-02 10:41 | NUR ---
CM Note: EMS arranged and faxed As per HUSSAIN Arvizu, pt son pending to sign paper work w/[facility] and pending DME to be delivered today. EMS arranged and faxed for today, primary nurse to call [facility] once pt ready to DC. Primary nurse and charge nurse Natalie chu. CM to cont to follow up.
[2019-10-02 11:28] VITALS: BP 116/48
--- NOTE | 2019-10-02 12:46 | NUR ---
DME & [facility] Paperwork SW was informed by Misty Rosario with [facility] that DME has been delivered to [facility]. SW also spoke to patient's son, Zane Raya, who informed SW that his stepfather, Gian Ha is at [facility] signing paperwork. Acceptance pending from [facility] to discharge patient today. Patient's nurse, Natalie and CM, Christine Kendall, made aware of above information.
--- NOTE | 2019-10-02 14:02 | NUR ---
Called to provide report to [facility]. Left [facility] with hospital secretary for attending nurse to return call. Explained time constraint to have patient at [facility] by 4:00 pm.
--- NOTE | 2019-10-02 14:10 | NUR ---
[facility] Accepted SW received call from Jemma Montoya Hospice Nurse, [phone]. He notified SW that [facility] had accepted patient and asked patient's nurse to call report to him at his cell number. Contact information provided to CM and Nurse. Misty Dahlelan with [facility] informed SW that she had spoken to Peggy at [facility] and was informed that they would work with hospice and hospital regarding arrival time for patient. [facility] cut off is normally 3:30pm. YOSI, Christine Kendall, made aware.
--- NOTE | 2019-10-02 14:17 | NUR ---
Provided report Jan Linda RN with [facility]. Called [facility] services for molded goods spot picker of patient to transfer to [facility].
--- NOTE | 2019-10-02 15:15 | NUR ---
EMS arrived to transport patient to [facility]. Patient transported on stretcher with oxygen at 2L, assisted by EMS personnel x2 and spouse.
== END 2019-10-02 15:15 | disposition hospice, home (50) | DRG 870 ==
LOC: EDH 08:14 → EDHIP 11:30 → 2CH 12:18 → 2BH 09-22 17:28 → 3CH 09-25 16:23
PROVIDERS: ADMIT Internal Medicine; ATTEND Internal Medicine
PROC: 5A1955Z Respiratory Ventilation, Greater than 96 Consecutive Hours (ICD-10-PCS; principal; 2019-09-20)
PROC: 0BH17EZ Insertion of Endotracheal Airway into Trachea, Via Natural or Artificial Opening (ICD-10-PCS; 2019-09-20)
PROC: 05HB33Z Insertion of Infusion Device into Right Basilic Vein, Percutaneous Approach (ICD-10-PCS; 2019-09-20)
DX: A41.9 Sepsis, unspecified organism (principal); R65.21 Severe sepsis with septic shock; E11.10 Type 2 diabetes mellitus with ketoacidosis without coma; J10.08 Influenza due to other identified influenza virus with other specified pneumonia; J12.9 Viral pneumonia, unspecified; J96.01 Acute respiratory failure with hypoxia; I50.23 Acute on chronic systolic (congestive) heart failure; N39.0 Urinary tract infection, site not specified; N17.9 Acute kidney failure, unspecified; E87.0 Hyperosmolality and hypernatremia; G93.40 Encephalopathy, unspecified; I42.9 Cardiomyopathy, unspecified; I25.10 Atherosclerotic heart disease of native coronary artery without angina pectoris; H54.61 Unqualified visual loss, right eye, normal vision left eye; D64.9 Anemia, unspecified; E78.00 Pure hypercholesterolemia, unspecified; E78.5 Hyperlipidemia, unspecified; E83.39 Other disorders of phosphorus metabolism; E86.0 Dehydration; E87.6 Hypokalemia; I11.0 Hypertensive heart disease with heart failure; I27.20 Pulmonary hypertension, unspecified; Z51.5 Encounter for palliative care; Z66 Do not resuscitate; Z95.1 Presence of aortocoronary bypass graft; Z03.818 Encounter for observation for suspected exposure to other biological agents ruled out; Z79.4 Long term (current) use of insulin; Z79.82 Long term (current) use of aspirin; Z83.3 Family history of diabetes mellitus; Z87.891 Personal history of nicotine dependence; Z88.0 Allergy status to penicillin; Z90.49 Acquired absence of other specified parts of digestive tract; Z79.899 Other long term (current) drug therapy; E11.51 Type 2 diabetes mellitus with diabetic peripheral angiopathy without gangrene; Z86.74 Personal history of sudden cardiac arrest
CPT/HCPCS: 36415; 36600; 70450; 71045; 76770; 80048; 80053; 81001; 82435; 82550; 82803; 82947; 82948; 83036; 83605; 83735; 83880; 83935; 84100; 84132; 84295; 84300; 84484; 84550; 85018; 85025; 85027; 85610; 85730; 87040; 87088; 87633; 87635; 87804; 93005; 93306; 93356; 94002; 94003; 94667; 94668; 99291; C1751; C1894; C9113; G0378; J0456; J0610; J1250; J1450; J1650; J1815; J1940; J2185; J2250; J2405; J2704; J2765; J3010; J3370; J3411; J3475; J3480; J3490; J7030; J7120